=== PATIENT | male | born 1980 | race Caucasian/White ===

== ENCOUNTER 2017-05-21 09:02 | Emergency (ER) | payer OTHER ==
[~2017-05-21] VITALS: Ht 177.8 cm; Wt 93.0 kg
[2017-05-21 09:09] VITALS: BP 131/71; PULSE 75; RESP 20; TEMP 98; O2SAT 100
[2017-05-21] MEDS ORDERED: SYNT175T PO (09:21)
[2017-05-21] MEDS ORDERED: SODIUM CHLOR 0.9% 1000 ML INJ 1,000 ML IV SCH (09:24)
--- NOTE | 2017-05-21 09:26 | PD ---
HPI Chief Complaint: Flank/Kidney Pain Time Seen by Provider: 09:20 Travel History International Travel<30 days: No Contact w/Intl Traveler<30days: No Traveled to known affect area: No History of Present Illness HPI This is a 37-year-old male who presents to the emergency department with left- sided abdominal discomfort that started this morning radiating into his left flank, sharp, stabbing, severe associated with nausea but no fevers or chills. He says it feels just like when he had a kidney stone about 10 years ago. He says that one passed without difficulty and he didn't require any intervention. He says his urine looks darker this morning. PFSH Past Medical History Immunizations Current: Yes Thyroid Disease: Yes (GRAVES) Influenza Vaccination: No Past Surgical History Other Surgery: Yes (IRRADIATED THYROID) Social History Alcohol Use: Yes (OCCASIONAL) Tobacco Use: No (FORMER) Substance Use: No Allergies-Medications (Allergen,Severity, Reaction): Coded Allergies: No Known Allergies (Unverified , 05/21/17) Reported Meds & Prescriptions Reported Meds & Active Scripts Active Reported Synthroid (Levothyroxine Sodium) 175 Mcg Tab 175 Mcg PO DAILY Review of Systems Except as stated in HPI: all other systems reviewed are Neg Physical Exam Narrative GENERAL: Uncomfortable appearing SKIN: Focused skin assessment warm and dry. HEAD: Atraumatic. Normocephalic. EYES: Pupils equal and round. No injection or drainage. ENT: Moist mucous membranes NECK: Trachea midline. CARDIOVASCULAR: Regular rate and rhythm. No murmur appreciated. RESPIRATORY: Clear to auscultation. Breath sounds equal bilaterally. GASTROINTESTINAL: Abdomen soft, tender to palpation in the left lower quadrant with no rebound or guarding. : Left CVA tenderness. MUSCULOSKELETAL: No obvious deformities. NEUROLOGICAL: Awake and alert. No obvious cranial nerve deficits. Moving all extremities. PSYCHIATRIC: Appropriate mood and affect; insight and judgment normal. Data Data Last Documented VS Vital Signs Date Time Temp Pulse Resp B/P (MAP) Pulse Ox O2 Delivery O2 Flow Rate FiO2 05/21/17 09:50 20 100 Room Air 05/21/17 09:09 98.0 75 131/71 (91) Orders Orders Complete Blood Count With Diff (05/21/17 09:24) Comprehensive Metabolic Panel (05/21/17 09:24) Urinalysis - C+S If Indicated (05/21/17:24) Iv Access Insert/Monitor (05/21/17 09:24) Ecg Monitoring (05/21/17:24) Oximetry (05/21/17:24) Ondansetron Inj (Zofran Inj) (05/21/17:30) Sodium Chlor 0.9% 1000 Ml Inj (Ns 1000 M (05/21/17:24) Sodium Chloride 0.9% Flush (Ns Flush) (05/21/17:30) Ketorolac Inj (Toradol Inj) (05/21/17:30) Morphine Inj (Morphine Inj) (05/21/17:30) Labs Laboratory Tests Test 05/21/17:15 05/21/17 09:35 Urine Collection Type CLEAN CATCH Urine Color YELLOW Urine Turbidity MOD Urine pH 6.0 Urine Specific [place] 1.029 Urine Protein NEG mg/dL Urine Glucose (UA) NEG mg/dL Urine Ketones TRACE mg/dL Urine Occult Blood LARGE Urine Nitrite NEG Urine Bilirubin NEG Urine Leukocyte Esterase NEG Urine RBC 100-200 /hpf Urine Squamous Epithelial Cells 0-5 /hpf Urine Amorphous Sediment FEW Microscopic Urinalysis Comment CULT NOT INDICATED Urine Collection Time 0915 White Blood Count 7.3 TH/MM3 Red Blood Count 5.38 MIL/MM3 Hemoglobin 15.4 GM/DL Hematocrit 45.8 % Mean Corpuscular Volume 85.2 FL Mean Corpuscular Hemoglobin 28.7 PG Mean Corpuscular Hemoglobin Concent 33.6 % Red Cell Distribution Width 12.3 % Platelet Count 245 TH/MM3 Mean Platelet Volume 7.9 FL Neutrophils (%) (Auto) 76.3 % Lymphocytes (%) (Auto) 16.2 % Monocytes (%) (Auto) 6.3 % Eosinophils (%) (Auto) 0.8 % Basophils (%) (Auto) 0.4 % Neutrophils # (Auto) 5.5 TH/MM3 Lymphocytes # (Auto) 1.2 TH/MM3 Monocytes # (Auto) 0.5 TH/MM3 Eosinophils # (Auto) 0.1 TH/MM3 Basophils # (Auto) 0.0 TH/MM3 CBC Comment DIFF FINAL Differential Comment Blood Urea Nitrogen 16 MG/DL Creatinine 0.88 MG/DL Random Glucose 143 MG/DL Total Protein 7.1 GM/DL Albumin 4.0 GM/DL Calcium Level 8.7 MG/DL Alkaline Phosphatase 52 U/L Aspartate Amino Transf (AST/SGOT) 12 U/L Alanine Aminotransferase (ALT/SGPT) 29 U/L Total Bilirubin 0.7 MG/DL Sodium Level 140 MEQ/L Potassium Level 3.6 MEQ/L Chloride Level 106 MEQ/L Carbon Dioxide Level 23.2 MEQ/L Anion Gap 11 MEQ/L Estimat Glomerular Filtration Rate 97 ML/MIN MDM Medical Decision Making Medical Screen Exam Complete: Yes Emergency Medical Condition: Yes Interpretation(s) Afebrile, no tachycardia, normotensive No leukocytosis Electrolytes are reassuring Urinalysis: Blood in the urine Differential Diagnosis nephrolithiasis, pyelonephritis, electrolyte abnormality, diverticulitis Narrative Course This is a 37-year-old male who presents to the emergency department with signs and symptoms classic for kidney stone. He's had a kidney stone in the past and it passed on its own. Labs are unremarkable with the exception of a large amount of blood in his urine. The patient appears well. He feels much better after IV morphine, IV fluids and antiemetics. We had along conversation regarding the risks versus benefits of imaging. Given he is past his prior stones independently I think it's reasonable to watch and wait and try outpatient symptomatic management. If he feels worse in 24-48 hours or return to the emergency department at which time we can do a CT scan. Diagnosis Primary Impression: Nephrolithiasis Patient Instructions: General Instructions Additional Instructions: If you develop severe pain, inability to eat or drink, or fever return to the emergency department. Use a strainer to try to catch your stone. Take lortab as needed for pain, and continue taking zofran as needed for nausea. Med/Other Pt SpecificInfo: Prescription(s) given Scripts Hydrocodone-Acetaminophen (Lortab) 5-325 Mg Tab 1 TAB PO Q6H Y for PAIN, #15 TAB 0 Refills Prov: Annmarie Bolanos MD 05/21/17 Ondansetron Odt (Zofran Odt) 4 Mg Tab 4 MG SL Q6HR Y for Nausea/Vomiting, #15 TAB 0 Refills Prov: Annmarie Bolanos MD 05/21/17 Disposition: 01 DISCHARGE HOME Condition: Stable Annmarie Bolanos MD May 21, 2017 09:26
[2017-05-21] MEDS ORDERED: KETOROLAC TROMETHAMINE 30 MG/ML (IVP) VIAL IVP ONE (09:30)
[2017-05-21] MEDS ORDERED: SODIUM CHLORIDE 0.9% FLUSH 10 ML FLUSH IV FLUSH PRN (09:30)
[2017-05-21] MEDS ORDERED: MORPHINE SULFATE 8 MG/ML INJ IV PUSH ONE (09:30)
[2017-05-21] MEDS ORDERED: ONDANSETRON HCL 4 MG/2 ML VIAL IVP ONE (09:30)
[2017-05-21 09:33] LABS: BLOOD, URINE LARGE (NEG); GLUCOSE,URINE NEG (NEG); KETONE, URINE TRACE mg/dL (NEG); NITRITE,URINE NEG (NEG)
[2017-05-21 09:37] LABS: METHOD OF COLLECTION CLEAN CATCH; URINE COLOR YELLOW (YELLW/STRAW)
[2017-05-21 09:38] LABS: COMMENT (UR) CULT NOT INDICATED; COMMENT2 (UR) MUCOUS PRESENT; CULTURE IF INDICATED CULT NOT INDICATED; RBC, URINE 100-200 /hpf (0-3); SQUAMOUS EPITHELIAL CELL URINE 0-5 /hpf (0-5)
[2017-05-21 09:50] VITALS: RESP 20; O2SAT 100
[2017-05-21 09:58] LABS: AUTOMATED NEUTROPHIL # 5.5 TH/MM3 (1.8-7.7); BASOPHIL % 0.4 % (0.0-2.0); EOSINOPHIL # 0.1 TH/MM3 (0-0.4); EOSINOPHIL % 0.8 % (0.0-4.0); HEMATOCRIT 45.8 % (39.0-51.0); HEMO FLAGS DIFF FINAL; LYMPH % 16.2 % (9.0-44.0); LYMPHOCYTE # 1.2 TH/MM3 (1.0-4.8); MEAN CELL VOLUME 85.2 FL (80.0-100.0); MEAN CORPUSCULAR HEMOGLOBIN 28.7 PG (27.0-34.0); MEAN CORPUSCULAR HGB CONC 33.6 % (32.0-36.0); MONO % 6.3 % (0.0-8.0); NEUT % 76.3 % (16.0-70.0); PLATELET COUNT 245 TH/MM3 (150-450); RED BLOOD COUNT 5.38 MIL/MM3 (4.50-5.90); RED CELL DISTRIBUTION WIDTH 12.3 % (11.6-17.2); WHITE BLOOD COUNT 7.3 TH/MM3 (4.0-11.0)
[2017-05-21 10:05] LABS: CHLORIDE 106 MEQ/L (98-107); POTASSIUM 3.6 MEQ/L (3.5-5.1); SODIUM (NA) 140 MEQ/L (136-145)
[2017-05-21 10:09] LABS: ANION GAP 11 MEQ/L (5-15); BICARBONATE 23.2 MEQ/L (21.0-32.0); BLOOD UREA NITROGEN 16 MG/DL (7-18)
[2017-05-21 10:12] LABS: ALT (GPT) 29 U/L (12-78); AST (GOT) 12 U/L (15-37); GLOMERULAR FILTRATION RATE 97 ML/MIN (>89)
[2017-05-21 10:14] LABS: TOTAL BILIRUBIN ADULT 0.7 MG/DL (0.2-1.0)
[2017-05-21 10:15] LABS: ALKALINE PHOSPHATASE 52 U/L (45-117)
[2017-05-21 10:20] VITALS: BP 129/70; PULSE 75; RESP 16; O2SAT 97
[2017-05-21] MEDS ORDERED: ZOFR4TAB3 SL (10:21)
[2017-05-21] MEDS ORDERED: HYDR-3533 PO (10:21)
[2017-05-21 10:40] VITALS: RESP 16
== END 2017-05-21 10:45 | disposition home or self-care (01) ==
LOC: PHED 09:02
DX: N20.0 Calculus of kidney (principal)
CPT/HCPCS: 80053; 81001; 85025; 96361; 96374; 96375; 99284; J1885; J2270; J2405; J7030

== ENCOUNTER 2017-06-12 14:56 | Emergency (ER) | payer OTHER ==
[~2017-06-12] VITALS: Ht 180.3 cm; Wt 95.2 kg
[~2017-06-12 14:56] MED LIST: HYDR-3533 PO; SYNT175T PO; ZOFR4TAB3 SL
[2017-06-12 15:02] VITALS: BP 166/78; PULSE 78; RESP 18; TEMP 97; O2SAT 99
[2017-06-12] MEDS ORDERED: SODIUM CHLOR 0.9% 1000 ML INJ 1,000 ML IV SCH (15:18)
--- NOTE | 2017-06-12 15:29 | PD ---
HPI Chief Complaint: Flank/Kidney Pain Time Seen by Provider: 15:13 Travel History International Travel<30 days: No Contact w/Intl Traveler<30days: No Traveled to known affect area: No History of Present Illness HPI The patient is a 37-year-old male who presents to the emergency department for left flank pain. The patient has a remote history of kidney stones, however, was seen several weeks ago for left flank pain and hematuria. The patient was subsequently discharged home, states the pain improved after several days. However, the patient developed left flank pain again last . The pain is located left flank, nonradiating, associated with dark colored urine. He does note increased frequency secondary to increased water intake, but denies any dysuria or urgency. He denies any associated nausea, vomiting, or right sided abdominal pain. The patient states his pain is currently a 3/10. The patient states he had a kidney stone approximately 10 years ago, however, did not require stenting or lithotripsy. The patient's symptoms are moderate, possibly exacerbated by an underlying kidney stone, and there are no current alleviating factors. PFSH Past Medical History Diminished Hearing: No Kidney Stones: Yes Immunizations Current: Yes Thyroid Disease: Yes (GRAVES) Tetanus Vaccination: Unknown Influenza Vaccination: No Past Surgical History Other Surgery: Yes (IRRADIATED THYROID) Social History Alcohol Use: Yes (OCCASIONAL) Tobacco Use: No (FORMER) Substance Use: No Allergies-Medications (Allergen,Severity, Reaction): Coded Allergies: No Known Allergies (Unverified Adverse Reaction, Unknown, 06/12/17) Reported Meds & Prescriptions Reported Meds & Active Scripts Active Ibuprofen 600 Mg Tab 600 Mg PO Q6H PRN [place] (Hydrocodone-Acetaminophen) 5-325 mg Tab 1 Tab PO Q6H PRN Flomax (Tamsulosin HCl) 0.4 Mg Cap 0.4 Mg PO HS 7 Days Reported Synthroid (Levothyroxine Sodium) 175 Mcg Tab 175 Mcg PO DAILY Review of Systems Except as stated in HPI: all other systems reviewed are Neg Cardiovascular: No: Chest Pain or Discomfort Respiratory: No: Shortness of Breath Gastrointestinal: No: Nausea, Vomiting, Diarrhea, Abdominal Pain Genitourinary: Positive: Hematuria, Flank Pain, No: Dysuria Physical Exam Narrative GENERAL: Awake, alert, pleasant 37-year-old male who appears his stated age and is in no acute respiratory distress. SKIN: Focused skin assessment warm/dry. HEAD: Atraumatic. Normocephalic. EYES: Sclerae icterus. No injection or drainage. ENT: No nasal bleeding or discharge. Mucous membranes pink and moist. NECK: Trachea midline. No JVD. CARDIOVASCULAR: Regular rate and rhythm. No murmur appreciated. RESPIRATORY: No accessory muscle use. Clear to auscultation. Breath sounds equal bilaterally. GASTROINTESTINAL: Abdomen soft, non-tender, nondistended. Negative [place]'s. Negative McBurney's. No guarding or rigidity. Back: No CVA tenderness. MUSCULOSKELETAL: No obvious deformities. No clubbing. No cyanosis. No edema. NEUROLOGICAL: Awake and alert. No obvious cranial nerve deficits. Motor grossly within normal limits. Normal speech. PSYCHIATRIC: Appropriate mood and affect; insight and judgment normal. Data Data Last Documented VS Vital Signs Date Time Temp Pulse Resp B/P (MAP) Pulse Ox O2 Delivery O2 Flow Rate FiO2 06/12/17 15:02 97.0 78 18 166/78 (107) 99 Orders Orders Complete Blood Count With Diff (06/12/17 15:18) Comprehensive Metabolic Panel (06/12/17 15:18) Lipase (06/12/17 15:18) Urinalysis - C+S If Indicated (06/12/17 15:18) Ct Abd/Pel W/O Iv Contrast (06/12/17 15:18) Iv Access Insert/Monitor (06/12/17 15:18) Ecg Monitoring (06/12/17 15:18) Oximetry (06/12/17 15:18) Ondansetron Inj (Zofran Inj) (06/12/17 15:30) Sodium Chlor 0.9% 1000 Ml Inj (Ns 1000 M (06/12/17 15:18) Sodium Chloride 0.9% Flush (Ns Flush) (06/12/17 15:30) Ketorolac Inj (Toradol Inj) (06/12/17 15:30) Labs Laboratory Tests Test 06/12/17 15:28 White Blood Count 7.9 TH/MM3 Red Blood Count 4.73 MIL/MM3 Hemoglobin 14.2 GM/DL Hematocrit 41.4 % Mean Corpuscular Volume 87.5 FL Mean Corpuscular Hemoglobin 30.1 PG Mean Corpuscular Hemoglobin Concent 34.4 % Red Cell Distribution Width 12.3 % Platelet Count 238 TH/MM3 Mean Platelet Volume 7.7 FL Neutrophils (%) (Auto) 76.7 % Lymphocytes (%) (Auto) 15.7 % Monocytes (%) (Auto) 6.3 % Eosinophils (%) (Auto) 1.1 % Basophils (%) (Auto) 0.2 % Neutrophils # (Auto) 6.1 TH/MM3 Lymphocytes # (Auto) 1.2 TH/MM3 Monocytes # (Auto) 0.5 TH/MM3 Eosinophils # (Auto) 0.1 TH/MM3 Basophils # (Auto) 0.0 TH/MM3 CBC Comment DIFF FINAL Differential Comment Urine Collection Type CLEAN CATCH Urine Color FELICITY Urine Turbidity MOD Urine pH 6.0 Urine Specific [place] 1.024 Urine Protein 100 mg/dL Urine Glucose (UA) NEG mg/dL Urine Ketones NEG mg/dL Urine Occult Blood LARGE Urine Nitrite NEG Urine Bilirubin NEG Urine Leukocyte Esterase NEG Urine RBC 100-200 /hpf Urine WBC 0-2 /hpf Urine Squamous Epithelial Cells 0-5 /hpf Urine Amorphous Sediment MOD Microscopic Urinalysis Comment CULT NOT INDICATED Urine Collection Time 1528 Blood Urea Nitrogen 16 MG/DL Creatinine 0.97 MG/DL Random Glucose 99 MG/DL Total Protein 7.1 GM/DL Albumin 4.1 GM/DL Calcium Level 8.7 MG/DL Aspartate Amino Transf (AST/SGOT) 16 U/L Alanine Aminotransferase (ALT/SGPT) 28 U/L Total Bilirubin 0.6 MG/DL Sodium Level 140 MEQ/L Potassium Level 3.6 MEQ/L Chloride Level 106 MEQ/L Carbon Dioxide Level 27.3 MEQ/L Anion Gap 7 MEQ/L Estimat Glomerular Filtration Rate 87 ML/MIN Lipase 112 U/L [facility] Medical Decision Making Medical Screen Exam Complete: Yes Emergency Medical Condition: Yes Medical Record Reviewed: Yes Interpretation(s) Laboratory Tests Test 06/12/17 15:28 White Blood Count 7.9 TH/MM3 Red Blood Count 4.73 MIL/MM3 Hemoglobin 14.2 GM/DL Hematocrit 41.4 % Mean Corpuscular Volume 87.5 FL Mean Corpuscular Hemoglobin 30.1 PG Mean Corpuscular Hemoglobin Concent 34.4 % Red Cell Distribution Width 12.3 % Platelet Count 238 TH/MM3 Mean Platelet Volume 7.7 FL Neutrophils (%) (Auto) 76.7 % Lymphocytes (%) (Auto) 15.7 % Monocytes (%) (Auto) 6.3 % Eosinophils (%) (Auto) 1.1 % Basophils (%) (Auto) 0.2 % Neutrophils # (Auto) 6.1 TH/MM3 Lymphocytes # (Auto) 1.2 TH/MM3 Monocytes # (Auto) 0.5 TH/MM3 Eosinophils # (Auto) 0.1 TH/MM3 Basophils # (Auto) 0.0 TH/MM3 CBC Comment DIFF FINAL Differential Comment Urine Collection Type CLEAN CATCH Urine Color FELICITY Urine Turbidity MOD Urine pH 6.0 Urine Specific [place] 1.024 Urine Protein 100 mg/dL Urine Glucose (UA) NEG mg/dL Urine Ketones NEG mg/dL Urine Occult Blood LARGE Urine Nitrite NEG Urine Bilirubin NEG Urine Leukocyte Esterase NEG Urine RBC 100-200 /hpf Urine WBC 0-2 /hpf Urine Squamous Epithelial Cells 0-5 /hpf Urine Amorphous Sediment MOD Microscopic Urinalysis Comment CULT NOT INDICATED Urine Collection Time 1528 Blood Urea Nitrogen 16 MG/DL Creatinine 0.97 MG/DL Random Glucose 99 MG/DL Total Protein 7.1 GM/DL Albumin 4.1 GM/DL Calcium Level 8.7 MG/DL Alkaline Phosphatase 54 U/L Aspartate Amino Transf (AST/SGOT) 16 U/L Alanine Aminotransferase (ALT/SGPT) 28 U/L Total Bilirubin 0.6 MG/DL Sodium Level 140 MEQ/L Potassium Level 3.6 MEQ/L Chloride Level 106 MEQ/L Carbon Dioxide Level 27.3 MEQ/L Anion Gap 7 MEQ/L Estimat Glomerular Filtration Rate 87 ML/MIN Lipase 112 U/L CT of the abdomen and pelvis reveals a 4 mm proximal to mid left ureteral stone causing mild obstructive uropathy. The stone is at the level of L4, not clearly visualized and initial airport sales agent radiographs. A couple tiny nonobstructing stones are seen of the left kidney as well as. Differential Diagnosis Differential diagnosis includes nephrolithiasis, hydronephrosis, pyelonephritis , diverticulitis, muscle strain, atypical pancreatitis. Narrative Course IV was established, labs are drawn and sent, and the patient was placed on cardiac telemetry monitoring and continuous pulse oximetry monitoring. The patient was administered Toradol, Zofran, and IV fluids. UA was sent to lab. Noncontrast CT of the abdomen and pelvis was obtained to evaluate for possible nephrolithiasis. The UA reveals blood with 100-[address] the abdomen and pelvis reveals left ureteral calculus. The patient was reevaluated at 4:13 PM, his pain had improved. The patient will be discharged home on [place], ibuprofen , and Flomax. He is advised to strain his urine and follow-up with urology if symptoms persist. Diagnosis Primary Impression: Nephrolithiasis Patient Instructions: General Instructions Additional Instructions: Please provide the patient a copy of his CT results and lab results at discharge. Follow-up with your primary physician. Follow-up with urology. Medications as directed. Return if symptoms worsen or progress. Med/Other Pt SpecificInfo: Prescription(s) given Scripts Ibuprofen (Ibuprofen) 600 Mg Tab 600 MG PO Q6H Y for Pain/Inflammation, #20 TAB 0 Refills Prov: Zeeshan Mg MD 06/12/17 Hydrocodone-Acetaminophen ([place]) 5-325 mg Tab 1 TAB PO Q6H Y for PAIN, #15 TAB 0 Refills Prov: Zeeshan Mg MD 06/12/17 Tamsulosin (Flomax) 0.4 Mg Cap 0.4 MG PO HS for Manage Prostate Problems for 7 Days, #7 CAP 0 Refills Prov: Zeeshan Mg MD 06/12/17 Disposition: 01 DISCHARGE HOME Condition: Stable Zeeshan Mg MD Jun 12, 2017 15:29
[2017-06-12] MEDS ORDERED: KETOROLAC TROMETHAMINE 30 MG/ML (IVP) VIAL IVP ONE (15:30)
[2017-06-12] MEDS ORDERED: ONDANSETRON HCL 4 MG/2 ML VIAL IVP ONE (15:30)
[2017-06-12] MEDS ORDERED: SODIUM CHLORIDE 0.9% FLUSH 10 ML FLUSH IV FLUSH PRN (15:30)
[2017-06-12 16:02] LABS: AUTOMATED NEUTROPHIL # 6.1 TH/MM3 (1.8-7.7); BASOPHIL % 0.2 % (0.0-2.0); EOSINOPHIL # 0.1 TH/MM3 (0-0.4); EOSINOPHIL % 1.1 % (0.0-4.0); HEMATOCRIT 41.4 % (39.0-51.0); LYMPH % 15.7 % (9.0-44.0); LYMPHOCYTE # 1.2 TH/MM3 (1.0-4.8); MEAN CELL VOLUME 87.5 FL (80.0-100.0); MEAN CORPUSCULAR HEMOGLOBIN 30.1 PG (27.0-34.0); MEAN CORPUSCULAR HGB CONC 34.4 % (32.0-36.0); MONO % 6.3 % (0.0-8.0); NEUT % 76.7 % (16.0-70.0); PLATELET COUNT 238 TH/MM3 (150-450); RED BLOOD COUNT 4.73 MIL/MM3 (4.50-5.90); RED CELL DISTRIBUTION WIDTH 12.3 % (11.6-17.2); WHITE BLOOD COUNT 7.9 TH/MM3 (4.0-11.0)
[2017-06-12 16:05] LABS: BLOOD, URINE LARGE (NEG); GLUCOSE,URINE NEG (NEG); KETONE, URINE NEG (NEG); NITRITE,URINE NEG (NEG)
[2017-06-12 16:10] LABS: CHLORIDE 106 MEQ/L (98-107); POTASSIUM 3.6 MEQ/L (3.5-5.1); SODIUM (NA) 140 MEQ/L (136-145)
[2017-06-12 16:13] LABS: METHOD OF COLLECTION CLEAN CATCH; URINE COLOR AMBER (YELLW/STRAW)
[2017-06-12 16:14] LABS: ANION GAP 7 MEQ/L (5-15); BICARBONATE 27.3 MEQ/L (21.0-32.0); BLOOD UREA NITROGEN 16 MG/DL (7-18); COMMENT (UR) CULT NOT INDICATED; COMMENT2 (UR) MUCOUS PRESENT; CULTURE IF INDICATED CULT NOT INDICATED; HEMO FLAGS DIFF FINAL; RBC, URINE 100-200 /hpf (0-3); SQUAMOUS EPITHELIAL CELL URINE 0-5 /hpf (0-5); WBC, URINE 0-2 /hpf (0-5)
[2017-06-12 16:16] LABS: ALT (GPT) 28 U/L (12-78)
[2017-06-12 16:17] LABS: AST (GOT) 16 U/L (15-37); GLOMERULAR FILTRATION RATE 87 ML/MIN (>89)
[2017-06-12] MEDS ORDERED: TAMS5CAP PO (16:17)
[2017-06-12] MEDS ORDERED: NORC5TAB PO (16:17)
[2017-06-12] MEDS ORDERED: IBUP-232 PO (16:17)
[2017-06-12 16:18] LABS: TOTAL BILIRUBIN ADULT 0.6 MG/DL (0.2-1.0)
[2017-06-12 16:19] LABS: ALKALINE PHOSPHATASE 54 U/L (45-117)
--- NOTE | 2017-06-12 16:19 | RADRPT ---
EXAM DATE/TIME: 06/12/2017 16:01 [facility] COMPARISON: No previous studies available for comparison. INDICATIONS : Left flank pain. Gross hematuria. Evaluate for renal stone. ORAL CONTRAST: No oral contrast ingested. RADIATION DOSE: 21.77 CTDIvol (mGy) MEDICAL HISTORY : Renal calculi. Hyperparathyroidism. SURGICAL HISTORY : None. ENCOUNTER: Initial ACUITY: 4 - 6 days PAIN SCALE: 0/10 LOCATION: Left flank TECHNIQUE: Volumetric scanning of the abdomen and pelvis was performed. Using automated exposure control and ad justment of the mA and/or kV according to patient size, radiation dose was kept as low as reasonably achievable to obtain optimal diagnostic quality images. DICOM format image data is available electro nically for review and comparison. FINDINGS: LOWER LUNGS: The visualized lower lungs are clear. LIVER: Homogeneous density without lesion. There is no dilation of the biliary tree. No calcified gallston es. SPLEEN: Normal size without lesion. PANCREAS: Within normal limits. KIDNEYS: There is a 4 mm stone in the proximal to mid left ureter at the level of L4. There is mild hydronephr osis and proximal hydroureter. A 3 mm nonobstructing stone is seen in the left upper pole and a 2 x 3 mm nonobstructing stone of the left lower pole.. No stones or obstruction on the right. ADRENAL GLANDS: Within normal limits. VASCULAR: There is no aortic aneurysm. BOWEL/MESENTERY: The stomach, small bowel, and colon demonstrate no acute abnormality. There is no free intraperitone al air or fluid. The appendix well-visualized, normal. ABDOMINAL WALL: Within normal limits. RETROPERITONEUM: There is no lymphadenopathy. BLADDER: No wall thickening or mass. REPRODUCTIVE: Within normal limits. INGUINAL: There is no lymphadenopathy or hernia. MUSCULOSKELETAL: Within normal limits for patient age. CONCLUSION: 4 mm proximal to mid left ureteral stone causing mild obstructive uropathy. The stone is at the level of L4, not clearly visualized on the initial diesel dragline operator radiographs. A couple tiny nonobstructing stones are seen of the left kidney as well. Otilio Acuna MD on June 12, 2017 at 16:12 Board Certified Radiologist. This report was verified electronically.
[2017-06-12 16:54] VITALS: BP 122/57; PULSE 77; RESP 15; O2SAT 100
== END 2017-06-12 16:56 | disposition home or self-care (01) ==
LOC: PHED 14:56
DX: N20.0 Calculus of kidney (principal); R82.99 Other abnormal findings in urine; R35.0 Frequency of micturition; E07.9 Disorder of thyroid, unspecified; Z87.442 Personal history of urinary calculi
CPT/HCPCS: 74176; 80053; 81001; 83690; 85025; 96361; 96374; 96375; 99285; J1885; J2405; J7030